=== PATIENT | male | born 1960 | race Caucasian/White ===

== ENCOUNTER 2020-09-24 05:33 | Outpatient (RCR) | payer OTHER ==
[~2020-09-24] VITALS: Ht 175.3 cm; Wt 89.7 kg
[~2020-09-24 05:33] MED LIST: IBUP-1780 PO; PROP160C2 PO
== END 2020-09-24 10:42 | disposition home or self-care (01) ==
LOC: PREOP 05:33
PROVIDERS: ATTEND Surgery
DX: Z01.812 Encounter for preprocedural laboratory examination (principal); Z12.11 Encounter for screening for malignant neoplasm of colon; Z20.828 Contact with and (suspected) exposure to other viral communicable diseases
CPT/HCPCS: 87635

== ENCOUNTER 2020-09-26 09:03 | Day surgery (SDC) | payer OTHER ==
[~2020-09-26] VITALS: Ht 175.3 cm; Wt 89.7 kg
[2020-09-26] VITALS (17 sets, daily range): BP systolic 111–187; BP diastolic 60–89
[2020-09-26] MEDS ORDERED: NS IV 500 ML 500 ML IV PRN (09:17)
[2020-09-26] MEDS ORDERED: NS IV 500 ML 500 ML ONE (09:24)
[2020-09-26] MEDS ORDERED: fentaNYL INJECTION 100 MCG/2 ML AMP IVP ONE (09:30)
[2020-09-26] MEDS ORDERED: MIDAZOLAM 5 MG/5 ML (VERSED) VIAL IV ONE (09:30)
[2020-09-26] MEDS ORDERED: LIDOCAINE JELLY 2% 6 ML SYRINGE MM PRN (09:30)
[2020-09-26] MEDS ORDERED: LIDOCAINE JELLY 2% 6 ML SYRINGE ONE (09:52)
[2020-09-26] MEDS ORDERED: MIDAZOLAM 5 MG/5 ML (VERSED) VIAL ONE ×2 (09:52→09:53)
[2020-09-26] MEDS ORDERED: fentaNYL INJECTION 100 MCG/2 ML AMP ONE ×2 (09:52)
--- NOTE | 2020-09-26 10:08 | Progress Note-Pre Operative ---
Pre-Operative Progress Note H&P Reviewed The H&P was reviewed, patient examined and no changes noted. Date Seen by Provider: Sep 26, 2020 Time Seen by Provider: 10:00 Date H&P Reviewed: Sep 26, 2020 Time H&P Reviewed: 10:00 Pre-Operative Diagnosis: screening MICHELLE Mayer MD Sep 26, 2020 10:08
--- NOTE | 2020-09-26 10:08 | Conscious Sedation/ASA ---
Conscious Sedation Pre-Proced Time 10:00 ASA Score 2 For ASA 3 and 4: Consider anesthesia and medical clearance. Also, for patients with a history of failed moderate sedation consider anesthesia. Airway Lungs Heart ASA score ASA 1: a normal healthy patient ASA 2: a patient with a mild systemic disease (mid diabetes, controlled hypertension, obesity ASA 3: a patient with a severe systemic disease that limits activity (angina, COPD, prior Myocardial infarction) ASA 4: a patient with an incapacitating disease that is a constant threat to life (CHF, renal failure) ASA 5: a moribund patient not expected to survive 24 hrs. (ruptured aneurysm) ASA 6: a declared brain- patient whose organs are being harvested. For emergent operations, add the letter E after the classification Mallampati Classification Grade 2 Sedation Plan Analgesia, Amnesia, Plan communicated to team members, Discussed options with patient/fam, Discussed risks with patient/fam The patient is an appropriate candidate to undergo the planned procedure, sedation, and anesthesia. The patient immediately re-assessed prior to indication. MICHELLE GONZALEZ MD Sep 26, 2020 10:08
--- NOTE | 2020-09-26 10:10 | Discharge Inst-Surgical ---
D/C Lap Instructions-CARLOS Follow Up Activity as tolerated High Fiber Diet 25g or more per day Avoid Alcohol, Caffeine, Spicy Rankin and Acid foods. Drink 64 fluid oz or more of fluids per day. Symptoms to Report: Fever over 101 degree F, Nausea/Vomiting If any problems/questions: Contact your physician or go to Emergency Room MICHELLE GONZALEZ MD Sep 26, 2020 10:09
[2020-09-26] MEDS ORDERED: HYDROcodone/APAP 5 MG/325 MG (LORTAB) TAB PO PRN (10:15)
[2020-09-26] MEDS ORDERED: ONDANSETRON 4 MG/2 ML (SDV) Z0FRAN IVP PRN (10:15)
[2020-09-26] MEDS ORDERED: morphine INJ 10 MG/ML 1ML (SYR OR VIAL) IVP PRN ×2 (10:15)
[2020-09-26] MEDS ORDERED: ACETAMINOPHEN 325 MG TABLET PO PRN (10:15)
--- NOTE | 2020-09-26 11:14 | Progress Note-Post Operative ---
Post-Operative Progess Note Surgeon (s)/Public Address System Operator (s) Surgeon MICHELLE GONZALEZ MD Public Address System Operator: none Pre-Operative Diagnosis screening colo Post-Operative Diagnosis chronic stage 2 ext and int hemorrhoids, mild sigmoid diverticulosis. Procedure & Operative Findings Date of Procedure 09/26/20 Procedure Performed/Findings colonoscopy Anesthesia Type cs Estimated Blood Loss Estimated blood loss (mL): minimal Specimens/Packing Specimens Removed none MICHELLE GONZALEZ MD Sep 26, 2020 11:14
--- NOTE | 2020-10-09 16:24 | OPERATIVE REPORT ---
DATE OF SERVICE: 09/26/2020 ATTENDING PRIMARY CARE PHYSICIAN: DAREN Herrera PREOPERATIVE DIAGNOSIS: Screening colonoscopy. POSTOPERATIVE DIAGNOSES: Mild chronic stage II external and internal hemorrhoids, mild sigmoid diverticulosis. PROCEDURE: Colonoscopy. SURGEON: Michelle Dumont MD. ANESTHESIA: Conscious sedation. ESTIMATED BLOOD LOSS: Minimal. FINDINGS: Mild chronic stage II external and internal hemorrhoids, mild sigmoid diverticulosis. DISPOSITION: The patient tolerated the procedure well. INDICATIONS: The patient is a 60-year-old male referred over to us for screening colonoscopy. He did have a colonoscopy approximately 10 years previous and was experiencing rectal bleeding at that time and nothing significant was identified. He states that he is otherwise doing well, does not report any major issues with diarrhea nor constipation as well as no red blood per rectum nor any dark tarry stools. He also does not report any family history of colon cancer. DESCRIPTION OF PROCEDURE: The patient was brought to the endoscopy suite, laid in the left lateral decubitus position. After adequate IV pain and sedative medications and conscious sedation anesthesia, digital rectal examination was performed. Mild chronic stage II external and internal hemorrhoids identified, not actively edematous nor inflamed and no bleeding. Normal sphincter tone was felt and there were no palpable masses. Prostate gland was palpable and appeared normal. The endoscope was then intubated to the anus and rectum gently insufflated. The endoscope was then advanced through the valves of [place] of the rectum with no polyps or any neoplasms identified. We then proceeded through the sigmoid colon where a mild sigmoid diverticulosis identified. There were no mucosal inflammatory changes to indicate any active diverticulitis. The endoscope was then advanced to the remainder of the descending, transverse and ascending colon to the cecum. These segments were normal. There were no polyps or any neoplasms identified. The endoscope was then slowly withdrawn while taking a second look and suctioning of residual air with no additional findings. The patient tolerated the procedure well. We will recommend the necessary lifestyle and dietary changes including incorporation of a high fiber diet with at least 30 grams of fiber daily as well as significant amounts of water to promote soft stools on a daily basis. If he is asymptomatic, he does not need another colonoscopy for another 10 years. Job ID: [id number] DocumentID: [id number] Dictated Date: 10/09/2020 16:06:36 [employer]dl [employer]icated Truck [employer] Date: 10/09/2020 16:23:42 Dictated By: MICHELLE DUMONT MD
== END 2020-09-26 12:40 | disposition home or self-care (01) ==
LOC: ENDO 09:03
PROVIDERS: ATTEND Surgery
DX: Z12.11 Encounter for screening for malignant neoplasm of colon (principal); K64.1 Second degree hemorrhoids; K57.30 Diverticulosis of large intestine without perforation or abscess without bleeding; K21.9 Gastro-esophageal reflux disease without esophagitis; G25.0 Essential tremor; S06.0X9A Concussion with loss of consciousness of unspecified duration, initial encounter; Z79.899 Other long term (current) drug therapy; Z87.891 Personal history of nicotine dependence; Z83.3 Family history of diabetes mellitus; Z80.3 Family history of malignant neoplasm of breast; Z82.49 Family history of ischemic heart disease and other diseases of the circulatory system

== ENCOUNTER 2020-11-08 14:38 | Emergency (ER) | payer OTHER ==
[~2020-11-08] VITALS: Ht 175.3 cm; Wt 90.7 kg
[2020-11-08 14:43] VITALS: BP 181/93
[2020-11-08] MEDS ORDERED: BSS 15 ML IR ONE (15:00)
[2020-11-08] MEDS ORDERED: TETRACAINE 0.5% OPHTH SOLN 4 ML BTL (SINGLE DOSE ONLY) OU ONE (15:00)
[2020-11-08] MEDS ORDERED: FLUORESCEIN (FLUOR-I-STRIPS) 1 MG STRP OU ONE (15:00)
--- NOTE | 2020-11-08 15:03 | ED EENT ---
History of Present Illness General Chief Complaint: Eye Problems Stated Complaint: R EYE RED,SOMETHING IN IT Nursing Triage Note: PT AMBULATE TO TRIAGE WITH C/O PAIN TO RIGHT EYE. PT REPORTS HE IS WORKING ON HIS HOUSE BUT WAS NOT DOING ANYTHING THIS MORNING WHEN THE PAIN STARTED. Source: patient Exam Limitations: no limitations History of Present Illness Date Seen by Provider: Nov 08, 2020 Time Seen by Provider: 15:00 Initial Comments To ER with sudden onset right eye pain/foreign body sensation about an hour ago. 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 Does not wear eyeglasses or contacts. Has had lasik. Timing/Duration: abrupt Severity: moderate Location: eye (R) Prearrival Treatment: no prearrival treatment Associated Symptoms: denies symptoms Allergies and Home Medications Allergies Coded Allergies: No Known Drug Allergies (Verified , 09/26/20) Home Medications Hydrocodone/Acetaminophen 1 Each Tablet, 1 EACH PO Q4H PRN for PAIN-MILD (1-4) Prescribed by: JAZZ PARKER on 11/08/20 1507 Ibuprofen 800 Mg Tablet, 800 MG PO Q8H PRN for PAIN-MILD, (Reported) Propranolol HCl 160 Mg Cap.sa.24h, 160 MG PO DAILY, (Reported) Patient Home Medication List Home Medication List Reviewed: Yes Review of Systems Review of Systems Constitutional: see HPI Eyes: See HPI, Foreign Body Sensation Ears: No Symptoms Reported Nose: no symptoms reported Mouth: no symptoms reported Throat: no symptoms reported Respiratory: no symptoms reported Cardiovascular: no symptoms reported Musculoskeletal: no symptoms reported Skin: no symptoms reported Neurological: No Symptoms Reported Hematologic/Lymphatic: No Symptoms Reported Past Redzgmn-Gzvlhp-Ymxvda Hx Patient Social History Alcohol Use: Occasionally Uses Smoking Status: Former Smoker Former Smoker, Quit: Sep 19, 1995 Recent Infectious Disease Expo: No Recent Hopitalizations: No Immunizations Up To Date Date of Influenza Vaccine: Aug 28, 2020 Seasonal Allergies Seasonal Allergies: Yes Past Medical History Surgeries: Yes (hiatal herna, back sx, ) Appendectomy Respiratory: No Cardiac: No Neurological: Yes (essential tremors) Genitourinary: No Gastrointestinal: Yes (hx of hiatal hernia) Gastroesophageal Reflux Musculoskeletal: Yes Arthritis, Back Injury, Chronic Back Pain Endocrine: No Cancer: No Psychosocial: No Integumentary: No Blood Disorders: No Physical Exam Vital Signs Vital Signs - First Documented 11/08/20 14:43 Temp 36.4 Pulse 64 Resp 17 B/P (MAP) 181/93 (122) O2 Delivery Room Air Height, Weight, BMI Height: '" Weight: lbs. oz. kg; 29.00 BMI Method: General Appearance: WD/WN, no apparent distress Eyes: right eye corneal abrasion (superior aspect of cornea from 11-2 oclock position there is dye uptake. No foreign body identified. Based on his story this is likely corneal abrasion as the pain completely resolved with application of topical tetracaine. However this does not have well-defined sharp borders like I would like to see with an abrasion so I want optometry to take a look at him today.); bilateral eye PERRL, bilateral eye EOMI Ears: bilateral ear auricle normal, bilateral ear canal normal, bilateral ear TM normal Neck: non-tender, full range of motion Respiratory: no respiratory distress, no accessory muscle use Neurologic/Psychiatric: alert, normal mood/affect, oriented x 3 Skin: normal color, warm/dry IOP with romelia pen 21mmHg . Progress/Results/Core Measures Results/Orders My Orders Orders - JAZZ PARKER APRN Tetracaine 0.5% Ophth Jill Sdv (Tetracai (11/08/20 15:00) Fluorescein Strips (Szuay-T-Hdwsjy) (11/08/20 15:00) Balanced Salt Irrigation Soln (Bss Irrig (11/08/20 15:00) Vital Signs/I&O 11/08/20 14:43 Temp 36.4 Pulse 64 Resp 17 B/P (MAP) 181/93 (122) O2 Delivery Room Air Blood Pressure Mean: 122 Departure Communication (Admissions) made appt with Dr collins at 3:45pm today. Impression Primary Impression: Corneal abrasion Disposition: HOME, SELF-CARE Condition: Stable Departure-Patient Inst. Decision time for Depature: 15:04 Referrals: ELVIA COLLINS OD NO,LOCAL PHYSICIAN (PCP) Primary Care Physician Patient Instructions: Corneal Abrasion (DC) Add. Discharge Instructions: 1. Go Dr. Damian office at 3:45 PM today. They will work you in.. Pain medication as needed. All discharge instructions reviewed with patient and/or family. Voiced understanding. Scripts Hydrocodone/Acetaminophen (Hydrocodone-Acetamin 5-325 mg) 1 Each Tablet 1 EACH PO Q4H PRN for PAIN-MILD (1-4), #10 TAB Prov: JAZZ PARKER APRN 11/08/20 Images Eye 1 - Dye uptake (fluorescein) Copy Copies To 1: ELVIA COLLINS OD, PETER J APRN Nov 08, 2020 15:03
[2020-11-08] MEDS ORDERED: ACHD5005 PO (15:06)
== END 2020-11-08 15:12 | disposition home or self-care (01) ==
LOC: EDUNIT# 14:38 → ER 14:39
DX: S05.01XA Injury of conjunctiva and corneal abrasion without foreign body, right eye, initial encounter (principal); G89.29 Other chronic pain; M54.9 Dorsalgia, unspecified; Z87.891 Personal history of nicotine dependence; Z79.891 Long term (current) use of opiate analgesic; X58.XXXA Exposure to other specified factors, initial encounter
CPT/HCPCS: 99282

== ENCOUNTER 2022-12-27 12:11 | Emergency (ER) | payer OTHER ==
[~2022-12-27] VITALS: Ht 175.3 cm; Wt 86.0 kg
[~2022-12-27 12:11] MED LIST changes: +ACHD5005 PO
[2022-12-27 12:40] VITALS: BP 145/80
--- NOTE | 2022-12-27 12:56 | ED General ---
General Chief Complaint: Cough/Cold/Flu Symptoms Stated Complaint: COUGH, FEVER, SORE THROAT Nursing Triage Note: PT AMB TO ED BY POV WITH C/O SORE THROAT, COUGH, FEVER, BODY ACHES CONGESTION BEGINNING THURSDAY. PT REPORTS SORE THROAT MUCH WORSE OVER THE LAST DAY. DENIES CP, SOB. Source of Information: Patient Exam Limitations: No Limitations History of Present Illness Date Seen by Provider: Dec 27, 2022 Time Seen by Provider: 12:30 Initial Comments 62-year-old male presents for sore throat. Overall symptoms started on Thursday with cough fever body aches congestion and sore throat. The remainder of the symptoms have improved however the sore throat has become "unbearable." He describes dull throbbing pain, worse with swallowing. He is tolerating some secretions, fluids at home with painful swallowing however he does not have a catching sensation or feel like things are getting stuck. He is tolerating food also but with some pain. He is no longer having fevers. All other systems reviewed and negative except documented per HPI. Voice recognition software was used to help create this chart Allergies and Home Medications Allergies Coded Allergies: No Known Drug Allergies (Verified , 09/26/20) Patient Home Medication List Home Medication List Reviewed: Yes Hydrocodone/Acetaminophen (Hydrocodone-Acetamin 5-325 mg) 1 Each Tablet, 1 EACH PO Q4H PRN for PAIN-MILD (1-4) Prescribed by: JAZZ PARKER on 11/08/20 1507 Ibuprofen (Ibuprofen) 800 Mg Tablet, 800 MG PO Q8H PRN for PAIN-MILD, (Reported) Entered as Reported by: YE BAUTISTA on 09/19/20 1434 Propranolol HCl (Propranolol HCl ER) 160 Mg Cap.sa.24h, 160 MG PO DAILY, (Reported) Entered as Reported by: YE BAUTISTA on 09/19/20 1434 Review of Systems Review of Systems Constitutional: no symptoms reported Past Wybjpjz-Dfqbfd-Clchmf Hx Patient Social History Tobacco Use?: No Use of E-Cig and/or Vaping dev: No Substance use?: No Alcohol Use?: No Pt feels they are or have been: No Immunizations Up To Date Influenza Vaccine Up-to-Date: Yes; Up-to-Date First/Initial COVID19 Vaccinat: X3 Second COVID19 Vaccination : X3 Third COVID19 Vaccination Date: X3 Seasonal Allergies Seasonal Allergies: Yes Past Medical History Surgery/Hospitalization HX: [facility] Surgeries: Yes (hiatal herna, back sx, ) Appendectomy Respiratory: No Cardiac: No Neurological: Yes (essential tremors) Genitourinary: No Gastrointestinal: Yes (hx of hiatal hernia) Gastroesophageal Reflux Musculoskeletal: Yes Arthritis, Back Injury, Chronic Back Pain Endocrine: No Cancer: No Psychosocial: No Integumentary: No Blood Disorders: No Family Medical History Reviewed Nursing Family Hx No Pertinent Family Hx Physical Exam Vital Signs Vital Signs - First Documented Capillary Refill : Less Than 3 Seconds Height, Weight, BMI Height: '" Weight: lbs. oz. kg; 27.00 BMI Method: General Appearance: No Apparent Distress, WD/WN Eyes: Bilateral Eye Normal Inspection, Bilateral Eye PERRL, Bilateral Eye EOMI HEENT: PERRL/EOMI, TMs Normal, Normal ENT Inspection, Other (Uvula is midline. No tonsillar swelling. There is posterior oropharyngeal erythema. No evidence for peritonsillar abscess. No lymphadenopathy.) Neck: Full Range of Motion, Non Tender, Supple Respiratory: Chest Non Tender, Lungs Clear, Normal Breath Sounds, No Accessory Muscle Use, No Respiratory Distress Cardiovascular: No Murmur, Normal Peripheral Pulses, Tachycardia Gastrointestinal: Normal Bowel Sounds, No Organomegaly, No Pulsatile Mass, Non Tender, Soft Extremity: Normal Capillary Refill, Normal Inspection, Normal Range of Motion, Non Tender, No Calf Tenderness Neurologic/Psychiatric: Alert, Oriented x3, No Motor/Sensory Deficits Skin: Normal Color, Warm/Dry Progress/Results/Core Measures Suspected Sepsis SIRS Temperature: Pulse: 112 Respiratory Rate: 18 Blood Pressure 145 /80 Mean: 101 Results/Orders Lab Results Laboratory Tests Test 12/27/22 13:00 Range/Units Group A Streptococcus Screen NEGATIVE NEGATIVE My Orders Orders - CAYLA CURRAN DO Rapid Strep A Screen (12/27/22 12:52) Dexamethasone Tablet (Decadron Tablet) (12/27/22 13:00) Vital Signs/I&O 12/27/22 12/27/22 12:40 12:40 Temp 37.3 Pulse 112 Resp 18 B/P (MAP) 145/80 (101) Pulse Ox 95 O2 Delivery Room Air Room Air Capillary Refill : Less Than 3 Seconds Blood Pressure Mean: 101 Departure Communication (Admissions) Patient is hemodynamically stable, maintaining his airway, tolerating secretions and tolerating liquids and food. No evidence for peritonsillar retropharyngeal abscess though he is slightly tachycardic. Strep test is negative. We will treat with Decadron and conservative measures for now with strict return precautions. I do not see any clinical evidence currently however if you were to return or have persistent symptoms are likely CT scan is negative to rule out retropharyngeal abscess Impression Primary Impression: Sore throat Disposition: HOME, SELF-CARE Condition: Stable Departure-Patient Inst. Referrals: NO,LOCAL PHYSICIAN (PCP/Family) Primary Care Physician Patient Instructions: Sore Throat, Adult ED Add. Discharge Instructions: Your strep test is negative. Take the steroid medication as prescribed. Alternate Tylenol and Motrin for pain. Use salt water gargles. Return to the emergency department for severe concerns. All discharge instructions reviewed with patient and/or family. Voiced understanding. Scripts Dexamethasone (Dexamethasone) 6 Mg Tablet 6 MG PO BID for 3 Days, #6 TAB Prov: CAYLA CURRAN DO 12/27/22 CAYLA CURRAN DO Dec 27, 2022 12:56
[2022-12-27] MEDS ORDERED: dexAMETHasone 6 MG TAB (DECADRON) PO SCH (13:00)
[2022-12-27] MEDS ORDERED: DEXA6TAB PO (13:27)
== END 2022-12-27 13:31 | disposition home or self-care (01) ==
LOC: EDUNIT# 12:11 → ER 12:13
DX: J02.9 Acute pharyngitis, unspecified (principal); R00.0 Tachycardia, unspecified
CPT/HCPCS: 87430; 99283

== ENCOUNTER → 2023-07-06 | Outpatient (CLI) | payer OTHER ==
[~2023-07-06] MED LIST changes: +DEXA6TAB PO
--- NOTE | 2023-07-06 09:02 | Diagnostic Imaging Report ---
Clinical indications: Patient has years of service and has history of concussions. Patient is having cognitive problems. Exam: MRI of the brain performed without IV contrast. Sequences include axial DWI, ADC map, axial T1, axial T2, axial FLAIR, axial gradient echo, and sagittal T1. Comparison: None. Findings: There is no evidence of acute cerebral infarct, intracranial hemorrhage, or gross mass effect. There is no abnormal brain parenchymal signal. There is no abnormal low gradient echo signal or sequelae from intracranial blood. The brain parenchymal volume appears appropriate for patient's age. There is normal sharma-white matter distinction. There is no significant midline shift or herniation. Visualized pal[place] vascular structures are unremarkable. The pituitary gland, sella, and suprasellar regions are unremarkable as visualized. There is no evidence of hydrocephalus. The basal cisterns are unremarkable. The skull, extracranial soft tissue, and orbits are unremarkable. There is mild mucosal thickening involving both maxillary sinuses, frontal sinus, sphenoid sinus. There is small to moderate amount of mucosal thickening involving ethmoid sinus. Temporal bones show no significant abnormality. IMPRESSION: There is jjjv-td-uqdqylda paranasal sinus disease. Otherwise, unremarkable MRI of the brain. Dictated by: Dictated on workstation # [id number]
--- NOTE | 2023-07-06 11:15 | Diagnostic Imaging Report ---
CLINICAL INDICATION: Patient with years of service and has cervical spine and left shoulder pain. EXAM: MRI of the cervical spine without contrast. Sequences include sagittal T2, sagittal T1, sagittal T2 fat-sat, and axial T2. COMPARISON: None. FINDINGS: There is no acute cervical spine fracture or dislocation. There is Modic type II degenerative signal changes involving the C5-C6 and C6-C7 endplates. There is no degenerative marrow edema. Limited visualization of posterior fossa is unremarkable. There is localized deformity of the cervical cord seen at the C5-C6 and C6-C7 levels due to degenerative disease. There is no abnormal cord signal. Is no significant paraspinal soft tissue abnormality. C1-C2: There is no significant central canal narrowing. C2-C3: Unremarkable. C3-C4: There is mild right neural foramen narrowing. There is no significant central canal or left neural foramen narrowing. There is mild right neural foramen narrowing. C4-C5: There is mild bilateral facet arthropathy. There is no significant central canal or neural foramen narrowing. C5-C6: There is a diffuse disk bulge with posterior disk spurs and bilateral uncinate spurs. There is moderate bilateral facet arthropathy. There is moderate to severe central canal stenosis. There is severe bilateral neural foramen narrowing. C6-C7: There is diffuse disk bulge and mild loss of disk space height. There are posterior disk spurs and bilateral uncinate spurs. There is moderate to severe central canal stenosis. There is severe right neural foramen narrowing and severe left neural foramen narrowing. C7-T1: There is severe right neural foramen narrowing and mild left neural foramen narrowing. There is no significant central canal or left neural foramen narrowing. There is moderate is severe right neural foramen narrowing. IMPRESSION: 1: There is no acute cervical spine fracture. 2: There is multilevel cervical spine degenerative disk disease which is worse at the C5-C6 and C6-C7 levels. This is described above. Dictated by: Dictated on workstation # [id number]
--- NOTE | 2023-07-06 11:24 | Diagnostic Imaging Report ---
PROCEDURE: MRI lumbar spine without contrast. TECHNIQUE: Multiplanar, multisequence MRI of the lumbar spine was performed without contrast. INDICATION: Chronic low back pain. COMPARISON: None. FINDINGS: 6 lumbar type vertebral bodies are visualized with the last well-formed disc space designated S1-S2. No acute fracture or dislocation is seen in the lumbar spine. Posterior fusion is seen from L4 to S1. Laminectomy noted at L4-L5. No suspicious focal osseous lesions. The conus terminates at the L1 level. No masses are seen associated with the conus or nerve roots of the cauda equina. No epidural collections are identified. Multilevel degenerative changes are seen in the lumbar spine with disc bulges, facet hypertrophy, and buckling of the ligamentum flavum. T12-L1: No significant spinal canal or foraminal stenosis. L1-L2: Facet hypertrophy results in mild spinal canal narrowing and mild bilateral foraminal narrowing. L2-L3: Broad-based disc bulge with left subarticular protrusion, facet hypertrophy, and buckling of the ligamentum flavum results in moderate spinal canal stenosis, moderate to severe left lateral recess stenosis, and yodo-zv-umwvljtg bilateral foraminal narrowing. L3-L4: Broad-based disc bulge, facet hypertrophy, and buckling of the ligamentum flavum results in moderate spinal canal stenosis and moderate to severe bilateral foraminal stenosis. L4-L5: Marginal osteophytes results in no significant spinal canal narrowing and moderate right and fmer-lg-zluvfbde left foraminal stenosis. L5-S1: Marginal osteophytes results in no significant spinal canal narrowing and islv-wq-fvocovjq right and no left foraminal narrowing. Paravertebral soft tissues are unremarkable. IMPRESSION: 1. No acute fracture or dislocation in the lumbar spine. 2. Multilevel degenerative changes in the lumbar spine, greatest at L2-L3 and L3-L4 3. Posterior fusion from L4 to S1 with laminectomy at L4-L5. Dictated by: Dictated on workstation # [id number]
--- NOTE | 2023-07-06 13:56 | Diagnostic Imaging Report ---
PROCEDURE: MRI left upper extremity without contrast. TECHNIQUE: Multiplanar, multisequence non contrast-enhanced MRI of the left upper extremity was accomplished. INDICATION: Left shoulder pain. COMPARISON: None. FINDINGS: No acute fracture is seen in the left shoulder. Alignment appears normal. No joint effusion is seen. The supraspinatus tendon demonstrates a small low-grade partial-thickness tear at the bursal fibers measuring about 7 mm wide with mild tendinosis. The infraspinatus tendon and teres minor tendon are intact. The subscapularis tendon demonstrates a small low-grade partial-thickness tear at the insertion. No focal muscular atrophy is seen. The long head of the biceps tendon appears normal in course and signal. The glenoid labrum is suboptimally evaluated in the absence of intra-articular contrast. No paralabral cyst is seen. The acromion has a curved undersurface. The coracoclavicular and coracoacromial ligaments appear to be intact. There is mild fluid in the subacromial subdeltoid bursa. There are moderate degenerative changes in the acromioclavicular joint. IMPRESSION: 1. Small low-grade partial-thickness tears and mild tendinosis in the rotator cuff with no full-thickness tear seen. 2. Moderate degenerative changes in the acromioclavicular joint with mild subacromial subdeltoid bursitis. Dictated by: Dictated on workstation # [id number]
== END ==
LOC: RAD 07:33
PROVIDERS: ATTEND Nurse Practitioner Family
DX: M19.012 Primary osteoarthritis, left shoulder (principal); M75.52 Bursitis of left shoulder; J32.8 Other chronic sinusitis; M47.816 Spondylosis without myelopathy or radiculopathy, lumbar region; M43.27 Fusion of spine, lumbosacral region; M50.322 Other cervical disc degeneration at C5-C6 level; M50.323 Other cervical disc degeneration at C6-C7 level; G31.84 Mild cognitive impairment of uncertain or unknown etiology
CPT/HCPCS: 70551; 72141; 72148; 73221